=== PATIENT | male | born 1985 | race American Indian/Alaskan Native ===

== ENCOUNTER 2021-08-04 20:44 | Emergency (ER) | payer SELFPAY ==
[2021-08-04 20:54] VITALS: BP 136/82
[2021-08-04] MEDS ORDERED: ACETAMINOPHEN 325 MG TAB PO ONE (22:28)
[2021-08-04] MEDS ORDERED: IBUPROFEN 400 MG TAB PO ONE (22:28)
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
== END 2021-08-05 00:45 ==
LOC: ED 20:44
DX: S80.811A Abrasion, right lower leg, initial encounter (principal); M25.512 Pain in left shoulder; M25.532 Pain in left wrist; M79.662 Pain in left lower leg; V49.49XA Driver injured in collision with other motor vehicles in traffic accident, initial encounter; Y93.89 Activity, other specified; Y92.89 Other specified places as the place of occurrence of the external cause; Y99.8 Other external cause status
CPT/HCPCS: 71045; 93005; 99283